=== PATIENT | male | born 1975 | race Caucasian/White ===

== ENCOUNTER 2020-12-17 03:12 | Emergency (ER) | payer MEDICAID ==
[~2020-12-17] VITALS: Ht 167.6 cm; Wt 74.8 kg
[2020-12-17 03:29] VITALS: BP_SYST 131
[2020-12-17] MEDS ORDERED: NAPR-1172 PO (04:41)
[2020-12-17 04:50] VITALS: BP_SYST 131
== END 2020-12-17 04:51 | disposition home or self-care (01) ==
LOC: SED 03:12
DX: M25.522 Pain in left elbow (principal); Z79.899 Other long term (current) drug therapy
CPT/HCPCS: 99283